=== PATIENT | male | born 1980 | race Caucasian/White ===

== ENCOUNTER 2025-04-15 15:22 | Outpatient (AMB) | payer BC, SELFPAY ==
--- NOTE | 2025-04-15 15:17 | A.OFFPC_ITS ---
Vital Signs 04/15/25 15:35 Height 6 ft 1.62 in Weight 268 lb 4 oz BMI 34.8 BP 124/80 Blood Pressure Location Lt brachial Position Sitting Respiration 16 Pulse 95 Pulse Source Pulse Oximeter Temp 97.9 F Temp Source Oral Pulse Oximetry (%) 95 Oxygen Delivery Method Room Air Intake Visit Reasons: Knee pain Intake Note: establish care and right knee pain 2week started out of no where. Tiler'S Assistant Required: No Accompanied by: Self / Same As Patient Allergies No Known Allergies Allergy (Verified 04/15/25 15:27) Tobacco use date assessed: 04/15/25 Dental Screening Dental Screen Date: 04/15/25 Did you have a dental visit in the last 12 months?: Yes Did you have a dental problem in the last 6 months where you did not have access to dental care?: No Was dental information given to patient?: Patient has dentist HPI HPI Comments History of Present Illness Details History of Present Illness The patient is a 44-year-old male presenting with right knee pain. Right knee pain: - Reports right knee pain for two weeks, with instability and occasional popping. - Pain worsened by compensating for left ankle discomfort. - No prior interventions or pain medicat ion used. Left ankle pain with possible bone spur: - Intermittent left ankle pain, sometime s severe enough to impair walking. - Suspected bone spur contributing to di scomfort. -following orthopedic surgeon History of shoulder surgery for arthritis: - Underwent shoulder surgery for arthrit is; severe arthritis found instead of torn labrum. - Surgery involved shaving of collar bon e and joint cleaning. 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 - Uncertain about pneumococcal vaccinati on post-splenectomy. Preventative care: Colon cancer screening with Cologuard: - Advised colon cancer screening with Co loguard due to age, no family history of colon cancer. Review of Systems - Musculoskeletal: Reports right knee pa in and instability, left ankle pain with possible bone spur. - General: Denies use of pain medication for knee pain. - Neurological: Denies any neurological symptoms. 10-point ROS reviewed and negative excep t as noted in HPI Past Medical History - History of shoulder surgery for arthri tis - History of splenectomy due to idiopath ic thrombocytopenic purpura (ITP) Health Maintenance - Preventative care: Colon cancer screen ing with Cologuard recommended - Discussion on smoking cessation option s including patches and gum - Advised to reduce alcohol consumption to prevent liver and heart issues Physical Exam General: Well-appearing, in no acute distress. Vital signs: Within normal limits. HEENT: Normocephalic, atraumatic. PERRLA, EOMI. Conjunctiva clear, sclera anicteric. Oropharynx clear, mucous membranes moist. TMs intact bilaterally. Neck: Supple, no lymphadenopathy, no thyromegaly, no JVD or carotid bruits. Cardiovascular: RRR, normal S1/S2, no murmurs, rubs, or gallops. Peripheral pulses 2+ and symmetric. No edema. Respiratory: Lungs clear to auscultation bilaterally, no wheezes, rales, or r honchi. Normal effort. Abdomen: Soft, non-tender, non-distended. Normoactive bowel sounds. No hepatosplenomegaly, no masses. Surgical scar noted from splenectomy due to ITP. MSK: Full range of motion, no joint swelling or deformity. Right knee instability noted with loose patellar type and popping on the patella. History of right shoulder surgery for torn labral with arthritis. Left ankle with bone spur. Normal gait. Skin: Warm, dry, intact. No rashes, lesions, or pallor. Neuro: Alert and oriented x3. Cranial nerves II-XII intact. Strength 5/5 throughout. Sensation intact. Reflexes 2+ symmetric. Normal coordination and gait. Psych: Appropriate mood and affect. Normal judgment and insight. Plan 1. Other instability, right knee M 25.361 - Use a knee brace for stability and jamarcus e ibuprofen 600 mg as needed for pain. - X-ray ordered to evaluate knee structu re. 2. Left Ankle Pain With Possible Bone Sp ur - Uric acid test to rule out gout, evalu ate bone spur further. 3. Preventative Care: Colon Cancer Scree bibiana With Cologuard - Complete Cologuard test for colon canc er screening. Discussion Notes During the consultation, I discussed the management of right knee pain, recommending a knee brace and prescribing ibuprofen for pain relief. An X-ray was ordered to further investigate the knee's condition. We also considered the possibility of gout affecting the left ankle and planned a uric acid test. For preventative care, I advised the patient to undergo colon cancer screening using Cologuard. Additionally, we discussed smoking cessation options and the importance of reducing alcohol intake to prevent potential liver and heart complications. Patient Instructions - Use a knee brace for stability and jamarcus e ibuprofen 600 mg as needed for knee pain. - Complete the Cologuard test for colon cancer screening as instructed. - Consider smoking cessation options lik e patches or gum when ready. - Reduce alcohol consumption to protect liver and heart health. PFSH Medical History (Updated 04/15/25 @ 15:59 by Tito Poon MD) Knee instability Family History (Updated 04/15/25 @ 15:33 by Pawan Bolden MA) Mother High blood pressure Social History (Updated 04/15/25 @ 15:33 by Pawan Bolden MA) Housing: House Alcohol intake: current Alcohol intake frequency: a few times a week Patient Tobacco Use Status: Current everyday Tobacco user Cigarette Packs Per Day: 1 service: No Current occupational status: employed Cognitive needs: No Hearing needs: No Vision needs: No Questionnaire PHQ-9 Over the last 2 weeks, how often have you been bothered by any of the following problems? 1. Little interest or pleasure in doing things: not at all 2. Feeling down, depressed, or hopeless: not at all 3. Trouble falling or staying asleep, or sleeping too much: not at all 4. Feeling tired or having little energy: not at all 5. Poor appetite or overeating: not at all 6. Feeling bad about yourself - or that you are a failure or have let yourself or your family down: not at all 7. Trouble concentrating on things, such as reading the newspaper or watching television: not at all 8. Moving or speaking so slowly that other people could have noticed. Or the opposite - being so fidgety or restless that you have been moving around a lot more than usual: not at all 9. Thoughts that you would be better off or of hurting yourself in some way: not at all Total score: 0 Depression Screening Interpretation: Negative Depression Screening Done: Yes Source: Developed by Drs. Buster Frank, Charisse Heredia, El Short and colleagues, with an educational cruz from [employer]. Thrive Questionnaire Date Thrive assessed: 04/14/25 I am a: Patient What is your living situation today?: I have a steady place to live Within the past 12 months, did the food you bought not last and you didn't have the money to get more?: Never true Within the past 12 months, did you worry whether your food would run out before you got money to buy more?: Never true Do you have trouble paying for medicines?: No Do you have trouble getting transportation to medical appointments?: No Do you have trouble paying your heating and electricity bill?: No Do you have trouble taking care of your child, family member or friend?: No Do you have trouble with day-to-day activities such as bathing, preparing meals, shopping, managing finances, etc.?: No Are you currently unemployed and looking for a job?: No Are you interested in more education?: No Please select the resources that you would like help with: None Currently or been in a relationship where the following occur: I choose not to answer THRIVE Score: 0 AUDIT C Alcohol Use Questionnaire (AUDIT-C) 1. How often do you have a drink containing alcohol?: 2-3 times a week 2. How many drinks containing alcohol do you have on a typical day when you are drinking?: 10 or more 3. How often do you have six or more drinks on one occasion?: Weekly Total Score: 10 Score Reviewed/Action Taken: Yes TORRES-7 AMB Questionnaire TORRES-7 Date TORRES - 7 assessed: 04/15/25 Feeling nervous, anxious, or on edge: 0 = Not at all Not being able to stop or control worryin = Not at all Worrying too much about different things: 0 = Not at all Trouble relaxin = Not at all Being so restless that it is hard to sit still: 0 = Not at all Becoming easily annoyed or irritable: 1 = Several days Feeling afraid as if something awful might happen: 0 = Not at all Total TORRES-7 score (0-4 normal; 5-9 mild; 10-14 moderate; 15-21 severe): 1 Source: Developed by Drs. Buster Frank, Charisse Heredia, El Short and colleagues, with an educational cruz from [employer]. Physical exam (Primary Care) Vital Signs: Last Vital Signs Temp 97.9 F 04/15/25 15:35 Pulse 95 04/15/25 15:35 Resp 16 04/15/25 15:35 BP 124/80 04/15/25 15:35 Pulse Ox 95 04/15/25 15:35 Oxygen Delivery Method Room Air 04/15/25 15:35 BMI result Body Mass Index 34.8 Tobacco/Smoking Status: Tobacco use Status Tobacco use date assessed 04/15/25 04/15/25 15:38 Patient Tobacco Use Status Current everyday Tobacco 04/15/25 15:38 PHQ-9: PHQ-9 Score PHQ-9: Total score 0 04/15/25 15:38 Depression Screening Interpretation: Negative Thrive Assessment: Date of Thrive Assessment Date Thrive assessed 04/14/25 04/15/25 15:18 Currently or been in a relationship where the following occur: I choose not to answer Coding Level of Care Code New Pt Level 3 (01478) Diagnoses Class 1 obesity E66.811 Encounter to establish care Z76.89 Hypertension screen Z13.6 Screening for diabetes mellitus Z13.1 Screening for lipoid disorders Z13.220 Screening for depression Z13.31 Routine lab draw Z01.89 Right knee pain M25.561 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 Left ankle pain M25.572 Bone spur of left ankle M77.52 Status post splenectomy Z90.81 Idiopathic thrombocytopenia D69.3 Nicotine use Z72.0 Alcohol use F10.90 Assessment & Plan Assessment & Plan (1) Class 1 obesity: Code(s): E66.811 - Obesity, class 1 (2) Encounter to establish care: Code(s): Z76.89 - Persons encountering health services in other specified circumstances (3) Hypertension screen: Code(s): Z13.6 - Encounter for screening for cardiovascular disorders (4) Screening for diabetes mellitus: Code(s): Z13.1 - Encounter for screening for diabetes mellitus (5) Screening for lipoid disorders: Code(s): Z13.220 - Encounter for screening for lipoid disorders (6) Screening for depression: Code(s): Z13.31 - Encounter for screening for depression (7) Routine lab draw: Code(s): Z01.89 - Encounter for other specified special examinations (8) Right knee pain: Code(s): M25.561 - Pain in right knee (9) Recurrent right knee instability: Code(s): M23.51 - Chronic instability of knee, right knee (10) Left ankle pain: Code(s): M25.572 - Pain in left ankle and joints of left foot (11) Bone spur of left ankle: Code(s): M77.52 - Other enthesopathy of left foot and ankle (12) Status post splenectomy: Code(s): Z90.81 - Acquired absence of spleen (13) Idiopathic thrombocytopenia: Code(s): D69.3 - Immune thrombocytopenic purpura (14) Nicotine use: Code(s): Z72.0 - Tobacco use (15) Alcohol use: Code(s): F10.90 - Alcohol use, unspecified, uncomplicated Plan Orders: Orders Hepatitis B Surface Antibody Today Z13.9 - Encounter for screening, unspecified, Z76.89 - Persons encountering health services in other specified circumstances Hepatitis C Antibody Today Z13.9 - Encounter for screening, unspecified, Z76.89 - Persons encountering health services in other specified circumstances UA CC w/rflx Micro + Cult Today Z13.9 - Encounter for screening, unspecified, Z76.89 - Persons encountering health services in other specified circumstances Vitamin B12 and Folate Today Z13.9 - Encounter for screening, unspecified, Z76.89 - Persons encountering health services in other specified circumstances Complete Blood Count Auto Diff Today Z13.9 - Encounter for screening, unspecified, Z76.89 - Persons encountering health services in other specified circumstances Comprehensive Met. Panel Today Z13.9 - Encounter for screening, unspecified, Z76.89 - Persons encountering health services in other specified circumstances Hemoglobin A1c Today Z13.9 - Encounter for screening, unspecified, Z76.89 - Persons encountering health services in other specified circumstances Hepatitis B Surface Antigen Today Z13.9 - Encounter for screening, unspecified, Z76.89 - Persons encountering health services in other specified circumstances HIV Ab/Ag Today Z13.9 - Encounter for screening, unspecified, Z76.89 - Persons encountering health services in other specified circumstances Lipid Panel Today Z13.9 - Encounter for screening, unspecified, Z76.89 - Persons encountering health services in other specified circumstances Vitamin D 1,25 dihydroxy Today Z13.9 - Encounter for screening, unspecified, Z76.89 - Persons encountering health services in other specified circumstances Uric Acid Today Z13.9 - Encounter for screening, unspecified, Z76.89 - Persons encountering health services in other specified circumstances XR knee RT 2V Today M25.369 - Other instability, unspecified knee Referrals Cologuard Test Z12.11 - Encounter for screening for malignant neoplasm of colon, Z12.12 - Encounter for screening for malignant neoplasm of rectum, Z13.9 - Encounter for screening, unspecified, Z76.89 - Persons encountering health services in other specified circumstances Medications: New ibuprofen 800 mg PO Q8H 30 tabs 0RF
--- OUTSIDE RECORDS SUMMARY | 2025-04-15 15:26 | XMS_ITS | Clinical Summary ---
Author Organization [facility] Address [address] [place] [address] Phone Care Team Providers Care Civil Engineer'S Aide Name Role Phone Pcp, Unknown Primary Care Provider Unavailabl e Allergies Active Allergy Reactions Criticality Noted Date Comments Nsaids (Non-Steroidal Anti-I nflammatory Drug) Hives 09/04/2021 Medications triamcinolone (NASACORT AQ) 55 mcg/actuation nasal inhaler 2 sprays by Nasal route daily. 1 each 12 2 Active Additional Information Patient not taking.Reported on 11/06/2022 cyclobenzaprine (FLEXERIL) 10 MG tablet Take 1 tablet (10 mg total) by mouth 2 (two) times a day as needed. 20 tablet 3 Active Additional Information Patient not taking.Reported on 06/06/2024 Active Problems No known active problems Immunizations No known immunizations Social History Tobacco Use Types Packs/Day Years Used Date Smoking Tobacco: Every Day Smokeless Tobacco: Never Tobacco Cessation:Ready to Q uit: Not Asked; Counseling Given: Not Answered Education Answer Date Recorded Are you interested in more education? Not on eliana e 11/22/2022 Are you concerned about learning? Not on file 11/22/2022 No 11/22/2022 No 11/22/2022 Digital Access Answer Date Recorded No 12/20/2022 No 12/20/2022 No 12/20/2022 Reliable internet access at home? Not on file 12/20/2022 Device with a working camera? Not on file Sex and Gender Information Value Date Recorded Sex Assigned at Not on file Legal Sex Male 9:24 PM EDT Gender Identity Not on file Sexual Orientation Not on file Last Filed Vital Signs Vital Sign Reading Time Taken Comments Blood Pressure 131/92 06/06/2024 9:51 AM EST Pulse 85 06/06/2024 9:51 AM EST Temperature 37.1 C (98.7 F) 06/06/2024 9:51 AM EST Respiratory Rate 18 06/06/2024 9:51 AM EST Oxygen Saturation 97% 06/06/2024 9:51 AM EST Inhaled Oxygen Concentration - - Weight 117.9 kg (260 lb) 06/06/2024 9:51 AM EST Height 188 cm (6' 2 ) 06/06/2024 9:51 AM EST Body Mass Index 33.38 06/06/2024 9:51 AM EST Plan of Treatment Health Maintenance Due Date Last Done Comments Adult Td,Tdap Booster 1978 LIPID PANEL 1978 DEPRESSION SCREENING 1990 SMOKING Hx and SMOKELESS TOB ACCO SCREENING 10/12/1991 HEPATITIS C SCREENING 1996 HIV ONE-TIME SCREENING (18-6 5 YEARS) 1996 PNEUMOCOCCAL VACCINES (0-49 years) (1 of 2 - PCV) 1997 SCREENING FOR DIABETES 2013 COLOGUARD 10/12/2023 COLONOSCOPY 10/12/2023 COLORECTAL CANCER SCREENING 10/12/2023 FIT TEST 10/12/2023 FOBT 10/12/2023 SIGMOIDOSCOPY 10/12/2023 VIRTUAL COLONOSCOPY 10/12/2023 INFLUENZA VACCINE (#1) 2025 COVID-19 VACCINE (1 - 2023-2 5 season) 2025 HEPATITIS A VACCINES Aged Out No long er eligible based on patient's age to complete this topic HIB VACCINES Aged Out No longer eligi ble based on patient's age to complete this topic MENINGOCOCCAL VACCINES (ACWY) Aged Out No longer eligible based on patient's age to complete this topic MENINGOCOCCAL VACCINES (B) Aged Out N o longer eligible based on patient's age to complete this topic Medical Devices Not on file Insurance BLUE CROSS OUT OF STATE PPO Member Subscriber Plan / Payer (Ef fective 2024-Present) Name:Bry Huertaser Member ID:[id number] Relation to Subscriber:Self Name:Josesito Huertas Subscriber ID:[id number] Payer ID:[id number] (NAIC) Type:PPO Address: [address] [address] BLUE CROSS OUT OF STATE PPO BLUE CROSS OUT OF STATE PPO OUT [facility] [place] [address] [place] [address] PPO Care Teams Civil Engineer'S Aide Relationship Specialty Start Date End Date Pcp, Unknown PCP - General 01/19/21 Additional Source Comments The information contained in this document represents components of the legal health record. It is not the complete legal health record.[facility]
[2025-04-15 15:35] VITALS: BP 124/80; PULSE 95; RESP 16; TEMP 36.6; O2SAT 95; BMI 34.8
== END 2025-04-15 16:07 | disposition home or self-care (01) ==
LOC: HO.HMCFMS 15:22
PROVIDERS: PCP Student in an Organized Health Care Education/Training Program; Visit Provider Student in an Organized Health Care Education/Training Program
DX: M25.561 Pain in right knee (principal); M23.51 Chronic instability of knee, right knee; E66.811 Obesity, class 1; Z68.34 Body mass index [BMI] 34.0-34.9, adult; M25.572 Pain in left ankle and joints of left foot; M77.52 Other enthesopathy of left foot and ankle; Z90.81 Acquired absence of spleen; D69.3 Immune thrombocytopenic purpura; Z72.0 Tobacco use; F10.90 Alcohol use, unspecified, uncomplicated

== ENCOUNTER 2025-04-21 10:49 | Outpatient (REF) | payer BC, SELFPAY ==
--- NOTE | ~2025-04-21 | XR_ITS ---
EXAMINATION: XR KNEE, RIGHT CLINICAL INFORMATION: M25.369 - Other instability, unspecified knee COMPARISON: None available. TECHNIQUE: Three views of the right knee. FINDINGS: Small volume of fluid is present in the entire pouch. There is minimal narrowing of the medial joint space. There are minute marginal osteophytes along the medial greater than lateral joint line and patellofemoral joint. There is mild lateral patellar tilt. XR/XR knee RT 2V IMPRESSION: Small volume of joint fluid is visible. Minimal degenerative changes consistent with osteoporosis. There is lateral patellar tilt, correlate for signs symptoms of patella femoral maltracking or excess lateral pressure syndrome.. Electronically signed by: Benjy Zee MD 04/21/2025 12:08 PM EDT
[2025-04-21 11:19] LABS: MANUAL DIFF FLAG NO
[2025-04-21 11:51] LABS: Hematocrit 45.5 % (42.0-52.0); Hemoglobin 15.5 g/dl (14.0-18.0); Imm Gran Abs Auto 0.02 X10*3/uL (0.00-0.03); Imm Gran Pct Auto 0.2 % (0.0-0.4); Lymphocytes Absolute Auto 3.5 X10*3/uL (1.2-4.9); Mean Corpuscular HGB Conc 34.1 g/dl (31.0-36.0); Mean Corpuscular Hemoglobin 32.1 pg (27.0-33.0); Mean Corpuscular Volume 94.2 fL (80.0-98.0); NRBC Abs Auto 0.000 X10*3/uL (0.0-0.012); NRBC Pct Auto 0.0 /100WBC (0.0-0.2); Platelet Count 286 X10*3/uL (160-400); Red Blood Count 4.83 X10*6/uL (4.60-5.80); White Blood Count 9.3 X10*3/uL (4.8-10.8)
[2025-04-21 12:02] LABS: Hemoglobin A1C 146.1495 umol/L
[2025-04-21 12:10] LABS: Appearance Urine Clear; Glucose Urine UA Negative (Negative); PH 7.0 (5.0-9.0); Specific Gravity - Urine 1.020 (1.005-1.025)
[2025-04-21 12:21] LABS: Alanine Aminotransferase 35 U/L (0-40); Albumin Level 4.6 g/dL (3.5-5.0); Alkaline Phosphatase 132 U/L (39-117); Anion Gap 12 (12-20); Aspartate Amino Transferase 44 U/L (5-37); Blood Urea Nitrogen 11 mg/dL (9-16); Calcium 9.2 mg/dL (8.4-10.2); Carbon Dioxide 26 mmol/L (22-29); Chloride 108 mmol/L (96-108); Cholesterol 183 mg/dL (<200); Estimated Glomerular Filt Rate > 60; HDL Cholesterol 38 mg/dL (>40); Potassium 4.0 mmol/L (3.3-5.1); Sodium 142 mmol/L (135-145); Total Protein 7.2 g/dL (6.5-8.0); Triglycerides 196 mg/dL (<150); Uric Acid 5.6 mg/dL (3.4-7.0)
[2025-04-21 12:58] LABS: Folate 7.8 ng/mL (> or = 4.0); Vitamin B12 274 pg/mL (200-900)
[2025-04-22 09:03] LABS: HBS Num1 0.49 mIU/mL (0-7.99); HBsAGNum1 0.49 S/CO (0.00-0.99); HIV Num 1 0.04 S/CO (0.00-0.99); Hepatitis B Surface Antigen Negative (Negative); ~HepC Num1 0.08 S/CO (0.00-0.79); ~Hepatitis B Surface Antibody NONREACTIVE (Nonreactive); ~Hepatitis C Antibody Nonreactive (Nonreactive)
[2025-04-25 19:33] LABS: VITAMIN D (1,25 OH) D3 59 pg/mL; Vit D (1,25-Dihydroxy) Total 59 pg/mL (18-72); Vitamin D (1,25 OH) D2 <8 pg/mL
== END 2025-04-21 10:50 | disposition home or self-care (01) ==
LOC: HO.XRAY 10:49
PROVIDERS: PCP Student in an Organized Health Care Education/Training Program; Visit Provider Student in an Organized Health Care Education/Training Program
DX: Z11.59 Encounter for screening for other viral diseases (principal); Z11.4 Encounter for screening for human immunodeficiency virus [HIV]; Z13.1 Encounter for screening for diabetes mellitus; Z13.6 Encounter for screening for cardiovascular disorders; Z76.89 Persons encountering health services in other specified circumstances; M25.361 Other instability, right knee
CPT/HCPCS: 36415; 73560; 80053; 80061; 81003; 82607; 82652; 82746; 83036; 84550; 85025; 86706; 86803; 87340; 87389

== ENCOUNTER → 2025-04-21 11:21 | Outpatient (BNV) | payer BC, SELFPAY | PROVIDERS: PCP Student in an Organized Health Care Education/Training Program; Visit Provider Radiology Diagnostic Radiology | DX: M25.461 Effusion, right knee (principal) | CPT/HCPCS: 73560 ==

== ENCOUNTER 2025-04-29 13:24 | Outpatient (AMB) | payer BC, SELFPAY ==
--- NOTE | 2025-04-29 13:28 | A.OFFPC_ITS ---
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 Elevated liver enzymes: - AST and alkaline phosphatase levels ar e elevated, attributed to fatty liver from hyperlipidemia. Hyperlipidemia: - Triglycerides and LDL cholesterol are elevated, with low HDL cholesterol, linked to dietary habits. Patellofemoral maltracking: - Lateral patellar tilt and maltracking noted, causing knee discomfort. Osteoarthritis: - Minimal degenerative changes observed in imaging, consistent with osteoarthritis. Review of Systems - Musculoskeletal: Reports knee discomfo rt, denies current ankle pain. 10-point ROS reviewed and negative excep t as noted in HPI Past Medical History Health Maintenance - Colon cancer screening with stool test (Cologuard) was discussed and initiated. Physical Exam General: Well-appearing, in no acute distress. Vital signs: Within normal limits. HEENT: Normocephalic, atraumatic. PERRLA, EOMI. Conjunctiva clear, sclera anicteric. Oropharynx clear, mucous membranes moist. TMs intact bilaterally. Neck: Supple, no lymphadenopathy, no thyromegaly, no JVD or carotid bruits. Cardiovascular: RRR, normal S1/S2, no murmurs, rubs, or gallops. Peripheral pulses 2+ and symmetric. No edema. Respiratory: Lungs clear to auscultation bilaterally, no wheezes, rales, or rhonchi. Normal effort. Abdomen: Soft, non-tender, non-distended. Normoactive bowel sounds. No hepatosplenomegaly, no masses. MSK: Full range of motion, no joint swelling or deformity. Normal gait. Minimal degenerative changes consistent with osteoporosis. Lateral patellar tibial carotid fascinations or patellofemoral maltragonal access lateral pressure syndrome noted. Skin: Warm, dry, intact. No rashes, lesions, or pallor. Neuro: Alert and oriented x3. Cranial nerves II-XII intact. Strength 5/5 thro ughout. Sensation intact. Reflexes 2+ symmetric. Normal coordination and gait. Psych: Appropriate mood and affect. Normal judgment and insight. Plan 1. Elevated Liver Enzymes - Referral to nutrition for dietary coun seling and consideration of milk thistle supplementation. U/S abdomen limited to evaluate liver 2. Hyperlipidemia - Dietary modifications advised with fol low-up lipid panel in three months. 3. Patellofemoral Maltracking - Referral to strategy specialist for evaluation. 4. Osteoarthritis - Consideration of orthopedic referral f or degenerative changes. Discussion Notes I discussed with the patient the findings of elevated liver enzymes and hyperlipidemia, attributing these to dietary habits. I recommended a referral to nutrition for dietary counseling and discussed the potential benefits of milk thistle supplementation. Will evaluate liver with ultrasound abdomen limited We also talked about the need for follow-up lipid panel testing in three months. Additionally, I advised on the referral to an strategy specialist for the evaluation of patellofemoral maltracking and osteoarthritis. Patient was informed and verbally consented to the use of an ambient scribe for clinic note documentation during this visit. Patient Instructions - Reduce intake of cheese and sodas to i mprove liver and lipid levels. - Consider taking milk thistle supplemen ts for liver health. - Follow up with senior applications analyst for dietar y counseling. - Schedule a follow-up lipid panel in months. - Attend orthopedic referral for knee ev aluation. Total time spent caring for the patient today was 30 minutes. This includes time spent before the visit reviewing the chart, time spent documenting, and time spent reviewing laboratory results, diagnostic imaging, medications, performing a medically necessary evaluation, counseling on diagnoses, care coordination, ordering appropriate tests, reporting test results with the patient, [facility] Medical History (Updated 04/29/25 @ 13:58 by Tito Poon MD) Maltracking of right patella Pain Patellar derangement Class 1 obesity Hyperlipidemia Elevated liver enzymes Knee instability Family History (Updated 04/15/25 @ 15:33 by Pawan Bolden MA) Mother High blood pressure Social History (Updated 04/15/25 @ 15:33 by Pawan Bolden MA) Housing: House Alcohol intake: current Alcohol intake frequency: a few times a week Patient Tobacco Use Status: Current everyday Tobacco user Cigarette Packs Per Day: 1 service: No Current occupational status: employed Cognitive needs: No Hearing needs: No Vision needs: No Questionnaire Thrive Questionnaire Date Thrive assessed: 04/14/25 I am a: Patient What is your living situation today?: I have a steady place to live Within the past 12 months, did the food you bought not last and you didn't have the money to get more?: Never true Within the past 12 months, did you worry whether your food would run out before you got money to buy more?: Never true Do you have trouble paying for medicines?: No Do you have trouble getting transportation to medical appointments?: No Do you have trouble paying your heating and electricity bill?: No Do you have trouble taking care of your child, family member or friend?: No Do you have trouble with day-to-day activities such as bathing, preparing meals, shopping, managing finances, etc.?: No Are you currently unemployed and looking for a job?: No Are you interested in more education?: No Please select the resources that you would like help with: None Currently or been in a relationship where the following occur: I choose not to answer THRIVE Score: 0 TORRES-7 AMB Questionnaire TORRES-7 Date TORRES - 7 assessed: 04/15/25 Source: Developed by Drs. Buster Frank, Charisse Heredia, El Short and colleagues, with an educational cruz from [employer]. Physical exam (Primary Care) Vital Signs: Last Vital Signs Temp 97.6 F 04/29/25 13:39 Pulse 85 04/29/25 13:39 Resp 16 04/29/25 13:39 BP 129/77 04/29/25 13:39 Pulse Ox 97 04/29/25 13:39 Oxygen Delivery Method Room Air 04/29/25 13:39 BMI result Body Mass Index 34.5 Tobacco/Smoking Status: Tobacco use Status Tobacco use date assessed 04/15/25 04/29/25 13:30 Patient Tobacco Use Status Current everyday Tobacco 04/29/25 13:30 Thrive Assessment: Date of Thrive Assessment Date Thrive assessed 04/14/25 04/29/25 13:30 Currently or been in a relationship where the following occur: I choose not to answer Coding Level of Care Code Est Pt Level 4 (23463) Diagnoses Elevated liver enzymes R74.8 Hyperlipidemia E78.5 Patellofemoral maltracking M22.2X9 Osteoarthritis M19.90 Knee instability M25.369 Maltracking of right patella M22.8X1 Class 1 obesity E66.811 Assessment & Plan Assessment & Plan (1) Elevated liver enzymes: Code(s): R74.8 - Abnormal levels of other serum enzymes Category: Medical (2) Hyperlipidemia: Code(s): E78.5 - Hyperlipidemia, unspecified Category: Medical (3) Patellofemoral maltracking: Code(s): M22.2X9 - Patellofemoral disorders, unspecified knee (4) Osteoarthritis: Code(s): M19.90 - Unspecified osteoarthritis, unspecified site (5) Knee instability: Code(s): M25.369 - Other instability, unspecified knee Category: Medical (6) Maltracking of right patella: Code(s): M22.8X1 - Other disorders of patella, right knee Category: Medical (7) Class 1 obesity: Code(s): E66.811 - Obesity, class 1 Category: Medical Plan Orders: Orders US abdomen limited 04/29/25 E78.5 - Hyperlipidemia, unspecified, R74.8 - Abnormal levels of other serum enzymes Referrals Orthopedics Referral M22.3X9 - Other derangements of patella, unspecified knee, M22.8X1 - Other disorders of patella, right knee, R52 - Pain, unspecified Nurse Navigator Referral E66.811 - Obesity, class 1, E78.5 - Hyperlipidemia, unspecified, R74.8 - Abnormal levels of other serum enzymes Nutrition/Dietitian Referral E66.811 - Obesity, class 1
[2025-04-29 13:39] VITALS: BP 129/77; PULSE 85; RESP 16; TEMP 36.4; O2SAT 97; BMI 34.5
--- OUTSIDE RECORDS SUMMARY | 2025-04-29 13:47 | XMS_ITS | Clinical Summary ---
Author Organization [facility] Address [address] [place] [address] Phone Care Team Providers Care Commercial Retoucher Name Role Phone Pcp, Unknown Primary Care [...] Insurance [employer] OUT OF STATE PPO [employer] OUT OF STATE PPO [employer] OUT OF STATE PPO OUT [facility] [place] [address] [place] [address] PPO Care Teams Commercial Retoucher Relationship Specialty Start Date End Date Pcp, Unknown PCP - General 01/19/21 Additional Source Comments The information contained in this document represents components of the legal health record. It is not the complete legal health record.[facility]
== END 2025-04-29 14:01 | disposition home or self-care (01) ==
LOC: HO.HMCFMS 13:25
PROVIDERS: PCP Student in an Organized Health Care Education/Training Program; Visit Provider Student in an Organized Health Care Education/Training Program
DX: R74.8 Abnormal levels of other serum enzymes (principal); E78.5 Hyperlipidemia, unspecified; M22.2X9 Patellofemoral disorders, unspecified knee; M19.90 Unspecified osteoarthritis, unspecified site; M25.369 Other instability, unspecified knee; M22.8X1 Other disorders of patella, right knee; E66.811 Obesity, class 1